=== PATIENT | female | born 1970 | race American Indian/Alaskan Native ===

== ENCOUNTER 2021-08-08 10:25 | Emergency (ER) | payer MEDICARE, OTHER ==
[2021-08-08] MEDS ORDERED: ACETAMINOPHEN 500 MG TAB PO ONE (11:59)
--- NOTE | 2021-08-08 12:13 | Emergency Department Report ---
ED Fall HPI - General Chief Complaint: Fall Stated Complaint: FELL/ HIT HEAD/BACK PAIN Time Seen by Provider: 08/08/21 11:56 Source: patient, family Mode of arrival: Wheelchair - History of Present Illness Initial Comments: This is a 50-year-old female nontoxic, well nourished in appearance, no acute signs of distress presents to the ED with c/o of neck pain, mid and lower back pain status post mechanical trip and fall that occurred prior to arrival. Patient is present with family member. Family member stated patient believes hit her head while falling. Patient does have a history of traumatic brain injury and has right-sided weakness/deficit. Otherwise patient denies any other symptoms or conditions. Denies any other injuries or trauma. Patient denies any radiation of pain. Patient does have history of chronic back pains. Denies any bladder or bowel instability. Patient denies any urinary symptoms. Denies any fever, chills, nausea, vomiting, headache, stiff neck, chest pain or shortness of breath. Patient denies any numbness or tingling. MD Complaint: fall -: This morning Fall Witnessed: yes, by family Place Fall Occurred: home Loss of Consciousness: none Prolonged Down Time?: no Symptoms Prior to Fall: none Location: neck, back Severity: mild Severity scale (0 -10): 8 Quality: aching Context: tripped/slipped Associated Symptoms: neck pain. denies: headache, numbness, weakness, chest paint, shortness of breath, abdominal pain, hematuria, unable to walk, lightheaded, vertigo, confusion - Related Data Previous Rx's Medication Instructions Recorded Last Taken Type Cyclobenzaprine [Flexeril] 10 mg PO TID PRN #20 tablet 09/19/15 Unknown Rx Ibuprofen [Motrin] 600 mg PO Q8H PRN #30 tablet 09/19/15 Unknown Rx Naproxen 500 mg PO Q12H PRN #12 tab 08/08/21 Unknown Rx Allergies Allergy/AdvReac Type Severity Reaction Status Date / Time apple Allergy Itching Verified 08/08/21 10:36 maldonado Allergy Itching Verified 08/08/21 10:36 pineapple Allergy Itching Verified 08/08/21 10:36 morphine AdvReac Itching Verified 09/19/15 14:03 ED Review of Systems ROS: Stated complaint: FELL/ HIT HEAD/BACK PAIN Other details as noted in HPI Comment: All other systems reviewed and negative Constitutional: denies: chills, fever Eyes: denies: eye pain, eye discharge, vision change ENT: denies: ear pain, throat pain Respiratory: denies: cough, shortness of breath, wheezing Cardiovascular: denies: chest pain, palpitations Endocrine: no symptoms reported Gastrointestinal: denies: abdominal pain, nausea, diarrhea Genitourinary: denies: urgency, dysuria, discharge Musculoskeletal: back pain. denies: joint swelling, arthralgia Skin: denies: rash, lesions Neurological: denies: headache, weakness, paresthesias Psychiatric: denies: anxiety, depression Hematological/Lymphatic: denies: easy bleeding, easy bruising ED Past Medical Hx - Past Medical History Hx Hypertension: Yes Hx Headaches / Migraines: Yes Hx Psychiatric Treatment: Yes (anxiety) Additional medical history: TBI, thyroid - Surgical History Additional Surgical History: SBO, gastric bypass - Social History Smoking Status: Never Smoker Substance Use Type: None - Medications Home Medications: Home Medications Medication Instructions Recorded Confirmed Last Taken Type Cyclobenzaprine [Flexeril] 10 mg PO TID PRN #20 tablet 09/19/15 Unknown Rx Ibuprofen [Motrin] 600 mg PO Q8H PRN #30 tablet 09/19/15 Unknown Rx Naproxen 500 mg PO Q12H PRN #12 tab 08/08/21 Unknown Rx ED Physical Exam - General Limitations: Physical Limitation General appearance: alert, in no apparent distress - Head Head exam: Present: atraumatic, normocephalic - Eye Eye exam: Present: normal appearance, PERRL, EOMI - Neck Neck exam: Present: normal inspection, full ROM. Absent: lymphadenopathy - Respiratory Respiratory exam: Present: normal lung sounds bilaterally. Absent: respiratory distress, wheezes, rales, rhonchi, stridor, chest wall tenderness, accessory muscle use, decreased breath sounds, prolonged expiratory - Cardiovascular Cardiovascular Exam: Present: regular rate, normal rhythm, normal heart sounds. Absent: bradycardia, tachycardia, irregular rhythm, systolic murmur, diastolic murmur, rubs, gallop - GI/Abdominal GI/Abdominal exam: Present: soft, normal bowel sounds. Absent: distended, tenderness, guarding, rebound, rigid, diminished bowel sounds - Extremities Exam Extremities exam: Present: full ROM, normal capillary refill. Absent: tenderness - Back Exam Back exam: Present: normal inspection, full ROM, paraspinal tenderness (Cervical, thoracic and lumbar paraspinal). Absent: CVA tenderness (R), CVA tenderness (L), muscle spasm, vertebral tenderness, rash noted - Neurological Exam Neurological exam: Present: alert, oriented X3 - Expanded Neurological Exam Expanded Patient oriented to: Present: person, place, time Cranial nerves: EOM's Intact: Normal, Facial Sensation: Normal Motor strength exam: RUE: 4, LUE: 5, RLE: 4, LLE: 5 Best Eye Response (Zuri): (4) open spontaneously Best Motor Response ([place]): (6) obeys commands Best Verbal Response ([place]): (5) oriented [place] Total: 15 - Psychiatric Psychiatric exam: Present: normal affect, normal mood - Skin Skin exam: Present: warm, dry, intact, normal color. Absent: rash ED Course Vital Signs 08/08/21 10:36 Temperature 97.9 F Pulse Rate 65 Respiratory 15 Rate Blood Pressure 157/86 [Right] O2 Sat by Pulse 100 Oximetry - Reevaluation(s) Reevaluation #1: 08/08/21 12:13 Patient is speaking in full sentences with no signs of distress noted. ED Medical Decision Making - Radiology Data [facility] [address] [place] [address] XRay Report Signed Patient: CONSUELO MATTSON MR#: [id number] : 1970 Acct:[id number] Age/Sex: 50 / F ADM Date: 08/08/21 Loc: ED Attending Dr: Ordering Physician: RANDAL BAUGH NP Date of Service: 08/08/21 Procedure(s): XR spine thoracic 2V Accession Number(s): [id number] cc: RANDAL BAUGH NP Fluoro Time In Minutes: Thoracic spine 2 views Indication: pain s/p fall Findings: There is no fracture, subluxation, or other acute radiographic abnormality of the thoracic spine. Signer Name: Michael Betancur MD Signed: 08/08/2021 4:06 PM Workstation Name: [id number] Transcribed By: SS Dictated By: Michael Betancur MD Electronically Authenticated By: Michael Betancur MD Signed Date/Time: 08/08/211605 DD/ 160 TD/TT: [address] [address] XRay Report Signed Patient: CONSUELO MATTSON MR#: [id number] : 1970 Acct:[id number] Age/Sex: 50 / F ADM Date: 08/08/21 Loc: ED Attending Dr: Ordering Physician: RANDAL BAUGH NP Date of Service: 08/08/21 Procedure(s): XR spine lumbosacral 2-3V Accession Number(s): [id number] cc: RANDAL BAUGH NP Fluoro Time In Minutes: LUMBAR SPINE 3 VIEWS INDICATION: pain s/p fall COMPARISON: None. FINDINGS: There is no fracture, subluxation, or other acute radiographic abnormality of the lumbar spine. There is mild disc space narrowing at T12-L1. The remainder of the lumbar disc space heights are maintained. Signer Name: Michael Betancur MD Signed: 08/08/2021 4:07 PM Workstation Name: [id number] Transcribed By: SS Dictated By: Michael Betancur MD Electronically Authenticated By: Michael Betancur MD Signed Date/Time: 08/08/211606 DD/ 160 TD/TT: [address] [address] Cat Scan Report Signed Patient: CONSUELO MATTSON MR#: [id number] : 1970 Acct:[id number] Age/Sex: 50 / F ADM Date: 08/08/21 Loc: ED Attending Dr: Ordering Physician: RANDAL BAUGH NP Date of Service: 08/08/21 Procedure(s): CT cervical spine wo con Accession Number(s): [id number] cc: RANDAL BAUGH NP CT CERVICAL SPINE WITHOUT CONTRAST INDICATION / CLINICAL INFORMATION: pain s/p fall. TECHNIQUE: Axial CT images were obtained through the cervical spine. Sagittal and coronal reformatted images were produced. All CT scans at this location are performed using CT dose reduction for ALARA by means of automated exposure control. COMPARISON: None available. FINDINGS: POSTOPERATIVE CHANGE:none ALIGNMENT: Normal alignment is maintained throughout cervical region. There is no indication of traumatic subluxation. VERTEBRAE: No indication of fracture or other osseous abnormality. DISC SPACES: No significant abnormality. DEGENERATIVE CHANGES: No indication of significant facet or uncovertebral arthropathy. No evidence of neuroforaminal stenosis. CRANIOCERVICAL JUNCTION:No significant abnormality. SPINAL CANAL: Central spinal canal is adequately maintained throughout. PARASPINAL SOFT TISSUES: No significant abnormality. ADDITIONAL FINDINGS: None. LUNG APICES: No significant abnormality of visualized lungs. IMPRESSION: 1. No indication of fracture, traumatic subluxation or significant degenerative change is identified on CT cervical spine. Signer Name: Alvaro Huizar MD Signed: 08/08/2021 12:59 PM Workstation Name: [id number] Transcribed By: Dictated By: Alvaro Huizar MD Electronically Authenticated By: Alvaro Huizar MD Signed Date/Time: 08/08/21 1259 DD/ 1255 TD/TT: [place] [address] Cat Scan Report Signed Patient: CONSUELO MATTSON MR#: [id number] : 1970 Acct:[id number] Age/Sex: 50 / F ADM Date: 08/08/21 Loc: ED Attending Dr: Ordering Physician: RANDAL BAUGH NP Date of Service: 08/08/21 Procedure(s): CT head/brain wo con Accession Number(s): [id number] cc: RANDAL BUAGH NP CT HEAD WITHOUT CONTRAST INDICATION / CLINICAL INFORMATION: pain s/p fall. TECHNIQUE: All CT scans at this location are performed using CT dose reduction for ALARA by means of automated exposure control. COMPARISON: Head CT 09/19/2015 FINDINGS: HEMORRHAGE: No evidence of intracranial hemorrhage or extra-axial fluid collection. EXTRA-AXIAL SPACES: Dilatation of cortical sulci is noted over the lateral convexity of the posterior frontal lobes and parietal lobes bilaterally secondary to remote brain injury. Similar findings are seen along the lateral aspect of the left temporal lobe. VENTRICULAR SYSTEM: Enlargement of the atria and occipital horns of the lateral ventricles is noted bilaterally, right greater than left. This is an ex vacuo phenomena secondary to remote brain injury. CEREBRAL PARENCHYMA: Diffusely decreased brain parenchymal attenuation is seen involving the posterior aspect of both frontal lobes, the parietal lobes and occipital lobes with involvement also demonstrated in the temporal operculum bilaterally. This reflects the presence of encephalomalacia secondary to remote brain injury. MIDLINE SHIFT OR HERNIATION: There is no mass effect. CEREBELLUM / BRAINSTEM: Brainstem and cerebellum have an unremarkable appearance. MIDLINE STRUCTURES:No abnormalities of the pituitary gland or pineal region are identified. INTRACRANIAL VESSELS:No abnormalities are identified on this noncontrast head CT. ORBITS: visualized portions of the orbits have an unremarkable appearance. SOFT TISSUES of HEAD: No significant abnormality. CALVARIUM: Evaluation of bone windows reveals no abnormalities. PARANASAL SINUSES / MASTOID AIR CELLS: Visualized portions of the paranasal sinuses are free from inflammatory mucosal disease. Mastoid air cells are normally pneumatized. IMPRESSION: 1. Evidence of remote brain injury involving posterior aspect of the frontal lobes, frontal, parietal and occipital lobes bilaterally. This is associated with ex vacuo phenomena with enlargement of cortical sulci and enlargement of the atria and occipital horns of both lateral ventricles. Similar findings were present on previous study 09/19/2015. 2. No acute intracranial abnormalities are identified. Signer Name: Alvaro Huizar MD Signed: 08/08/2021 12:55 PM Workstation Name: [id number] Transcribed By: Dictated By: Alvaro Huizar MD Electronically Authenticated By: Alvaro Huizar MD Signed Date/Time: 08/08/21 1255 DD/ 1249 TD/TT: - Medical Decision Making 50-year-old female that presents with a fall. Patient is stable and was examined by me. Patient received treatment in ER which stated symptoms has improved subsided. Patient notified of the imaging results with no questions noted by the patient. Patient be discharged with naproxen. Patient was i nstructed to follow-up with a primary care doctor in 3-5 days or if symptoms worsen and continue return to emergency room as soon as possible. At time of discharge, the patient does not seem toxic or ill in appearance. No acute signs of distress noted. Patient agrees to discharge treatment plan of care. No further questions noted by the patient. Critical care attestation.: If time is entered above; I have spent that time in minutes in the direct care of this critically ill patient, excluding procedure time. ED Disposition Clinical Impression: Head injury Qualifiers: Encounter type: initial encounter Qualified Code(s): S09.90XA - Unspecified injury of head, initial encounter Lower back injury Qualifiers: Encounter type: initial encounter Qualified Code(s): S39.92XA - Unspecified injury of lower back, initial encounter Fall Qualifiers: Encounter type: initial encounter Qualified Code(s): W19.XXXA - Unspecified f all, initial encounter Disposition: HOME / SELF CARE / HOMELESS Is pt being admited?: No Does the pt Need Aspirin: No Condition: Stable Additional Instructions: Follow-up with your primary care doctor in 3-5 days or if symptoms worsen such as bladder or bowel stability, chest pain, short of breath, numbness or tingling sensation in extremities, headache, dizziness, visual changes, nausea vomiting, or abdominal pain, return back to emergency room as was possible. Prescriptions: Naproxen 500 mg PO Q12H PRN #12 tab PRN Reason: Pain , Severe (7-10) Referrals: JOAQUIN BARILLAS MD [Primary Care Provider] - 3-5 Days PRIMARY CAREMD [Referring] - 3-5 Days Time of Disposition: 16:18
--- NOTE | 2021-08-08 13:00 | Cat Scan Report ---
CT HEAD WITHOUT CONTRAST INDICATION / CLINICAL INFORMATION: pain s/p fall. TECHNIQUE: All CT scans at this location are performed using CT dose reduction for ALARA by means of automated e xposure control. COMPARISON: Head CT 09/19/2015 FINDINGS: HEMORRHAGE: No evidence of intracranial hemorrhage or extra-axial fluid collection. EXTRA-AXIAL SPACES: Dilatation of cortical sulci is noted over the lateral convexity of the posterior frontal lobes and parietal lobes bilaterally secondary to remote brain injury. Similar findings are seen along the lateral aspect of the left temporal lobe. VENTRICULAR SYSTEM: Enlargement of the atria and occipital horns of the lateral ventricles is noted b ilaterally, right greater than left. This is an ex vacuo phenomena secondary to remote brain injury. CEREBRAL PARENCHYMA: Diffusely decreased brain parenchymal attenuation is seen involving the posterio r aspect of both frontal lobes, the parietal lobes and occipital lobes with involvement also demonstr ated in the temporal operculum bilaterally. This reflects the presence of encephalomalacia secondary to remote brain injury. MIDLINE SHIFT OR HERNIATION: There is no mass effect. CEREBELLUM / BRAINSTEM: Brainstem and cerebellum have an unremarkable appearance. MIDLINE STRUCTURES:No abnormalities of the pituitary gland or pineal region are identified. INTRACRANIAL VESSELS:No abnormalities are identified on this noncontrast head CT. ORBITS: visualized portions of the orbits have an unremarkable appearance. SOFT TISSUES of HEAD: No significant abnormality. CALVARIUM: Evaluation of bone windows reveals no abnormalities. PARANASAL SINUSES / MASTOID AIR CELLS: Visualized portions of the paranasal sinuses are free from inf lammatory mucosal disease. Mastoid air cells are normally pneumatized. IMPRESSION: 1. Evidence of remote brain injury involving posterior aspect of the frontal lobes, frontal, parietal and occipital lobes bilaterally. This is associated with ex vacuo phenomena with enlargement of melissa ical sulci and enlargement of the atria and occipital horns of both lateral ventricles. Similar findi ngs were present on previous study 09/19/2015. 2. No acute intracranial abnormalities are identified. Signer Name: Alvaro Huizar MD Signed: 08/08/2021 12:55 PM Workstation Name: [id number]
--- NOTE | 2021-08-08 13:03 | Cat Scan Report ---
CT CERVICAL SPINE WITHOUT CONTRAST INDICATION / CLINICAL INFORMATION: pain s/p fall. TECHNIQUE: Axial CT images were obtained through the cervical spine. Sagittal and coronal reformatted images wer e produced. All CT scans at this location are performed using CT dose reduction for ALARA by means of automated exposure control. COMPARISON: None available. FINDINGS: POSTOPERATIVE CHANGE:none ALIGNMENT: Normal alignment is maintained throughout cervical region. There is no indication of traum atic subluxation. VERTEBRAE: No indication of fracture or other osseous abnormality. DISC SPACES: No significant abnormality. DEGENERATIVE CHANGES: No indication of significant facet or uncovertebral arthropathy. No evidence of neuroforaminal stenosis. CRANIOCERVICAL JUNCTION:No significant abnormality. SPINAL CANAL: Central spinal canal is adequately maintained throughout. PARASPINAL SOFT TISSUES: No significant abnormality. ADDITIONAL FINDINGS: None. LUNG APICES: No significant abnormality of visualized lungs. IMPRESSION: 1. No indication of fracture, traumatic subluxation or significant degenerative change is identified on CT cervical spine. Signer Name: Alvaro Huizar MD Signed: 08/08/2021 12:59 PM Workstation Name: [email or web address]
[2021-08-08 14:47] LABS: HCG Qualitative,Urine Negative (Negative)
--- NOTE | 2021-08-08 16:10 | XRay Report ---
Thoracic spine 2 views Indication: pain s/p fall Findings: There is no fracture, subluxation, or other acute radiographic abnormality of the thoracic spine. Signer Name: Michael Betancur MD Signed: 08/08/2021 4:06 PM Workstation Name: [id number]
--- NOTE | 2021-08-08 16:11 | XRay Report ---
LUMBAR SPINE 3 VIEWS INDICATION: pain s/p fall COMPARISON: None. FINDINGS: There is no fracture, subluxation, or other acute radiographic abnormality of the lumbar spine. There is mild disc space narrowing at T12-L1. The remainder of the lumbar disc space heights are maintaine d. Signer Name: Michael Betancur MD Signed: 08/08/2021 4:07 PM Workstation Name: [id number]
[2021-08-08 16:38] VITALS: BP 140/86
== END 2021-08-08 16:38 | disposition home or self-care (01) ==
LOC: ED 10:25
DX: S09.90XA Unspecified injury of head, initial encounter (principal); S39.92XA Unspecified injury of lower back, initial encounter; I10 Essential (primary) hypertension; G43.909 Migraine, unspecified, not intractable, without status migrainosus; F41.9 Anxiety disorder, unspecified; Z88.5 Allergy status to narcotic agent; Z91.018 Allergy to other foods; Z79.899 Other long term (current) drug therapy; W18.39XA Other fall on same level, initial encounter; Y93.89 Activity, other specified; Y92.89 Other specified places as the place of occurrence of the external cause; Y99.8 Other external cause status
CPT/HCPCS: 70450; 72070; 72100; 72125; 81025; 99284